=== PATIENT | male | born 1975 | race Caucasian/White ===

== ENCOUNTER → 2018-02-25 11:34 | Outpatient (CLI) | payer OTHER, SELFPAY ==
--- NOTE | 2018-02-25 11:41 | RAD_ITS ---
STUDY: X-RAY CHEST REASON FOR EXAM: Male, 42 years old. Shortness of breath on exertion TECHNIQUE: PA and lateral views of the chest. COMPARISON: None. FINDINGS: The lungs are clear and expanded. There is no demonstrated pleural abnormality. Normal size heart. Normal mediastinum and keith. Normal visualized pulmonary arteries. Normal visualized aortic arch and descending thoracic aorta. Normal visualized thoracic spine. Normal visualized ribs, clavicles, and shoulders. There is no demonstrated abnormality of the visualized soft tissue structures of the upper abdomen. RAD/Chest PA and Lateral IMPRESSION: Normal x-ray examination of the chest. Electronically Signed: Yordy Meyers DO at 11:43 EST Tel , Service support ,
--- OUTSIDE RECORDS SUMMARY | 2018-04-13 15:05 | XMS RPT_ITS ---
:1975 Author Organization [facility] Care Team Providers Name Role Phone John Caldera Attending Unavailable John Caldera Referring Unavailable John Caldera Primary Care Unavailable John Caldera Attending Unavailable John Caldera Referring Unavailable John Caldera Primary Care Unavailable PROBLEMS PROBLEMS DATE TYPE CONDITION / CODE ATTENDING STATUS SOURCE 02/25/2018 Unknown R06.02 - John Caldera Active [place] [facility] R06.02(ICD-10) Repository PROCEDURES PROCEDURES No Procedure Records FoundRESULTS RESULTS CHEST PA AND LATERAL Observed: 02/25/2018 Status: F Source: [place] 11:42 AM [facility] REPOSITORY [facility] Imaging Services [address] [place] [address] Chest PA and Lateral MR#: [id number] Acct: [id number] Name: JERAMIE CABRAL Rep #: [id number] : 1975 M 42 From: Yordy Meyers DO PCP: John Caldera MD Status: REG CLI Study: Chest PA and Lateral Date of Exam: 02/25/18 Exam# [id number] Ordering Dr: John Caldera MD STUDY: X-RAY CHEST REASON FOR EXAM: Male, 42 years old. Shortness of breath on exertion TECHNIQUE: PA and lateral views of the chest. COMPARISON: None. FINDINGS: The lungs are clear and expanded. There is no demonstrated pleural abnormality. Normal size heart. Normal mediastinum and keith. Normal visualized pulmonary arteries. Normal visualized aortic arch and descending thoracic aorta. Normal visualized thoracic spine. Normal visualized ribs, clavicles, and shoulders. There is no demonstrated abnormality of the visualized soft tissue structures of the upper abdomen. RAD/Chest PA and Lateral IMPRESSION: Normal x-ray examination of the chest. 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 Aggravating: Rotation, extension Relieving: Not moving the head Pain relievers: none Associated: Pertinent negatives: Denies numbness, weakness, known injury, fever, headache PAST MEDICAL HISTORY Diagnosis Date - Pectus excavatum - Syncope 1986 multiple (6) episodes of syncope - Tobacco abuse MEDICATIONS: nystatin (NYSTOP) powder Apply 1 application to affected area three times daily. ALLERGIES: ALLERGIES No Known Allergies VITALS: BP 120/86 Pulse 80 Temp 36.8 ?C (98.2 ?F) (Tympanic) Resp 16 Wt 111.1 kg (245 lb) BMI 30.62 kg/m2 PHYSICAL EXAM: GEN: no acute distress, alert, sitting without moving his head HEENT: PERRL, EOMI, MMM NECK: supple, no lymphadenopathy, no thyromegaly No midline tenderness, no paraspinal tenderness. Normal flexion, 10 degrees left rotation, 15 degrees right rotation, limited lateral extension, no extension. HEART: regular rate, regular rhythm, no murmurs LUNGS: clear to auscultation, no wheezes or crackles, no increased WOB EXT: no clubbing, no cyanosis, no edema NEURO: Alert and oriented to person, place, and time. DTR 2+/4. Normal strength. Normal gait. No tremor. ASSESSMENT/PLAN: 1. Neck pain - ICD9: 723.1, ICD10: M54.2 Treat with aleve and ice or heat. Consider chiropractic manipulation. Seek ER evaluation for fever or progressive numbness/weakness. Darrius Hensley MD ALLERGIES ALLERGIES DATE TYPE / CODE NAME / CODE REACTION SEVERITY SOURCE Drug NO KNOWN [facility] Class/32244 ALLERGIES [facility] 1003(SNOMED Repository CT) ENCOUNTERS ENCOUNTERS ADMIT/DISCHARGE ACCOUNT ADMITTING ENCOUNTER LOCATION SOURCE NUMBER CLASS 03/20/2018 [id number] [facility] ing:[facility] Repository 02/25/2018 [id number] [facility] ing:[facility] Repository 05/09/2017/05/14/19 [id number] Ambulatory [address] Repository PAYERS PAYERS ENCOUNTER GUARANTOR PAYER SUBSCRIBER SOURCE 03/20/2018 JERAMIE Mark Primary HECTOR [place] [id number] [facility] MARIA R, [facility]: [id number] [address]Cfx: [id number] Repository Date:[id number] [address], [place] [address]JT: 03/20/2018 [facility]:SELF PAY [facility] Number: Effective Repository Date:2018-03-20 02/25/2018 JERAMIE Mark Primary HECTOR [place] [id number] Insurance:[facility], Number: [id number] [address]Wmn: [id number] Repository Date:[id number] [address], [place] [address]QN: 02/25/2018 Secondary NOT GIVENUNK [place] Insurance:[facility]LF [facility]Y [facility] Number: Effective Repository Date:2018-02-25
== END ==
LOC: MTLAB 11:38 → MTRAD 11:41
PROVIDERS: Family Provider Family Medicine; PCP Family Medicine; Referring Provider Family Medicine; Visit Provider Family Medicine
DX: R06.02 Shortness of breath (principal)
CPT/HCPCS: 71046

== ENCOUNTER 2018-05-29 16:57 | Emergency (ER) | payer OTHER, SELFPAY ==
[2018-05-29 16:57] VITALS: BP 152/80; PULSE 81; RESP 16; TEMP 36.6; O2SAT 100; BMI 31.2
--- NOTE | 2018-05-29 17:15 | RAD_ITS ---
STUDY: X-RAY - SOFT TISSUE NECK REASON FOR EXAM: Male, 42 years old. Possible foreign body. TECHNIQUE: 2 view(s) of the neck were obtained. COMPARISON: None. FINDINGS: Normal visualized nasopharynx, oropharynx, hypopharynx. Normal epiglottis. Normal visualized subglottic tracheal air column. Normal prevertebral soft tissue structures. Normal visualized osseous structures. The soft tissue structures are unremarkable. No radiopaque foreign bodies are seen. RAD/Neck for Soft Tissue IMPRESSION: Normal x-ray soft tissue neck. Electronically Signed: Sreedhar Chong MD at 18:39 EDT , Service support ,
--- NOTE | 2018-05-29 17:17 | ED.VIS.GEN ---
History of Present Illness Chief Complaint: Foreign Body Informant: Patient Onset: Today Context: Sudden Onset Timing: Continuous Quality: Foreign body sensation throat/neck Current Severity: Mild Maximum Severity: Moderate Worsened by: Swallowing Relieved by: Nothing Associated Symptoms: Possibly change in voice Narrative: Patient was using a grinding wheel. He states piece of metal went into his mouth. He believes the piece of metal is in his throat. Triage nurse states may have been in gum. He does not have a hoarse voice. There is no evidence of respiratory distress. He states there is been no drooling. He states he has discomfort when he swallows but is able to swallow. He is on no anticoagulant. He states he quit smoking March 20, 2018. Past Medical History - Allergies and Home Meds Allergies/Adverse Reactions: Allergies No Known Allergies Allergy (Verified 05/29/18 17:00) Primary Care Physician: John Caldera MD [Primary Care Provider] - Prior records reviewed: Yes Past Medical History: None Surgical History: noncontributory Smoking Status: Former smoker Alcohol: None Review of Systems General: Denies: Chills, Fever, Sweats Eyes: Denies: Visual changes - bilaterally, Blurred Vision - bilaterally, Diplopia ENT: Reports: Sore throat. Denies: Rhinorrhea Cardiovascular: Denies: Chest pain, Palpitations Respiratory: Denies: Dyspnea, Cough, Dyspnea on exertion Hematologic: Denies: Easy bruising, Easy bleeding Allergy: Reports: Swelling of the mouth, Swelling of the tongue Physical Exam Vital Signs/Narrative: Vital Signs Temp Pulse Resp BP Pulse Ox 05/29/18 16:57 98 F 81 16 152/80 H 100 Inital Vital Signs reviewed: Yes General: Well nourished, Well developed, No Acute Distress. Negative for: Obese Head: Normocephalic, Atraumatic. Negative for: Trauma, Tenderness Eyes: Perrl, EOMI, -. Negative for: Pale conjunctiva, Scleral icterus ENT: Moist mucous membranes, No rhinorrhea, - - Trachea is midline. There is no stridor. There is no angioedema.. Negative for: Sinus tenderness Neck: Supple, Nontender, No lymphadenopathy, No JVD - You are being prejudiced Cardiovascular: Regular rate, Regular rhythm, No murmurs, Normal S1, Normal S2 Respiratory: No distress, CTA bilaterally, Chest nontender. Negative for: Decreased Air Movement Skin: Normal color, No rash. Negative for: Cyanosis, Diaphoresis, Jaundice Neurological: Alert, Oriented x3, Cranial nerves II-XII grossly intact, Normal Strength, Normal Sensation, Normal Gait Psychological: Normal affect, Normal Mood Diagnostic/Tx/Re-eval 2 view x-ray of the neck soft tissue reveals no foreign body. Patient may have had an abrasion it is given him foreign body sensation. Nothing further needs to be done. - Medical Decision Making Since patient complains of discomfort with swallowing and foreign body sensation will obtain x-ray. If there is a metallic foreign body should be very apparent. ED Disposition - Plan for ED Patient: Disposition: Home or Assisted Living Diagnosis: Foreign body sensation in throat Instructions: ED Foreign Body Esophageal Rslv Referrals: John Caldera MD [Primary Care Provider] - As Needed Additional Instructions: If you have any difficulty swallowing solids, drooling, or difficulty breathing, please return to the emergency department.
[2018-05-29 18:37] VITALS: PULSE 80; RESP 16; O2SAT 99
== END 2018-05-29 18:38 | disposition home or self-care (01) ==
LOC: ED 18:32
PROVIDERS: Emergency Provider Emergency Medicine; Family Provider Family Medicine; PCP Family Medicine
DX: R09.89 Other specified symptoms and signs involving the circulatory and respiratory systems (principal); Z87.891 Personal history of nicotine dependence
CPT/HCPCS: 70360; 99282

== ENCOUNTER → 2018-07-22 | Outpatient (CLI) | payer OTHER, SELFPAY ==
--- NOTE | 2018-07-22 15:59 | RAD_ITS ---
STUDY: X-RAY - PELVIS AND BILATERAL HIPS REASON FOR EXAM: Male, 42 years old. Pain TECHNIQUE: AP view of the pelvis.? 2 views of the right hip, and 2 views of the left hip were obtained. COMPARISON: None. FINDINGS: There is a non-specific bowel gas pattern. Normal visualized soft tissue structures. Normal bilateral iliac wings, sacroiliac joints and visualized sacrum. Normal bilateral superior and inferior pubic rami. Normal pubic symphysis. Normal bilateral ischial tuberosities. Normal visualized right femoral head. Normal right acetabulum. Normal right hip joint. Normal visualized left femoral head. Normal left acetabulum. Normal left hip joint. RAD/Hips B/L min 2 views w/ Pelvis IMPRESSION: Normal x-ray examination of the pelvis and bilateral hips. Electronically Signed: Rajat Davidson MD at 15:32 EDT , Service support ,
--- NOTE | 2018-07-22 16:01 | RAD_ITS ---
STUDY: X-RAY - LUMBAR SPINE REASON FOR EXAM: Male, 42 years old. Low back pain with hip pain TECHNIQUE: 5 view(s) of the lumbar spine were obtained. COMPARISON: None FINDINGS: Normal lumbar lordosis. There is no substantial scoliosis. Grade 2 anterolisthesis of L5 on S1 with chronic-appearing bilateral pars defects. Endplate degenerative change at L4-5 and L5-S1. Disc space height loss at L5-S1. There is no demonstrated acute fracture. The soft tissue structures are unremarkable. RAD/L/S Spine Min 4 Views IMPRESSION: Degenerative changes with anterolisthesis at L5-S1 and chronic pars defects Electronically Signed: Yordy Meyers DO at 14:42 EDT Tel , Service support ,
== END | disposition home or self-care (01) ==
PROVIDERS: Family Provider Family Medicine; PCP Family Medicine; Referring Provider Family Medicine; Visit Provider Family Medicine
DX: M54.5 Low back pain (principal); M25.551 Pain in right hip; M25.552 Pain in left hip
CPT/HCPCS: 72110; 73521

== ENCOUNTER 2018-08-07 21:41 | Emergency (ER) | payer OTHER, SELFPAY ==
[2018-08-07 21:43] VITALS: BP 142/93; PULSE 62; RESP 13; TEMP 37; O2SAT 98; BMI 34.2
--- NOTE | 2018-08-07 21:54 | RAD_ITS ---
STUDY: X-RAY CHEST REASON FOR EXAM: Male, 42 years old. Shortness of breath, nausea, chest pain TECHNIQUE: Single AP portable view of the chest. COMPARISON: Previous study of 02/25/2018 FINDINGS: compliance monitor leads are present. The lungs are clear and expanded. There is no demonstrated pleural abnormality. Normal size heart. Normal mediastinum and keith. Normal visualized pulmonary arteries. Normal visualized aortic arch and descending thoracic aorta. Normal visualized thoracic spine. Normal visualized ribs, clavicles, and shoulders. There is no demonstrated abnormality of the visualized soft tissue structures of the upper abdomen. RAD/Chest 1 View (Portable) IMPRESSION: Normal x-ray examination of the chest. Electronically Signed: Emil Stack MD at 22:27 EDT , Service support ,
--- NOTE | 2018-08-07 21:54 | EKG12_ITS ---
Test Reason : CP Blood Pressure : / mmHG Vent. Rate : 067 BPM Atrial Rate : 067 BPM P-R Int : 164 ms QRS Dur : 094 ms QT Int : 382 ms P-R-T Axes : 034 006 008 degrees QTc Int : 403 ms Normal sinus rhythm Normal ECG Confirmed by CARLOTTA CRAVEN ([id number]), associate editor OMID KESSLER ([id number]) on 08/12/2018 11:34:57 AM Referred By: MARII Confirmed By:HIMANSHU CRAVEN
--- NOTE | 2018-08-07 21:55 | ED.RN ---
NO OLD EKGS IN MUSE
[2018-08-07 22:00] LABS: Absolute Lymphocyte Count 2.74 X10^3/ul (0.83-4.51); Absolute Neutrophil Count 4.6 X10^3/uL (2.0-7.7); Basophil# 0.05 X10^3/uL; Basophil% 0.6 % (0-1); Eosinophil# 0.34 X10^3/uL; Eosinophils% 4.1 % (0-5); Hematocrit 41.2 % (40-54); Hemoglobin 14.3 g/dl (13.0-16.5); Lymphocyte # 2.74 X10^3/ul (4.0); Lymphocyte % 32.9 % (19-41); Mean Corp Hgb Conc 34.7 g/gl (32-36); Mean Corpuscular Hgb 30.7 pg (27.0-32.0); Mean Corpuscular Volume 88.4 fL (80-94); Mean Platelet Vol. 9.1 fl (6.2-12.0); Monocyte# 0.56 X10^3/uL; Monocyte% 6.7 % (0-10); Neutrophil # 4.64 X10^3/uL (2.7-7.7); Neutrophil % 55.6 % (47-70); Platelet Count 246 K/mm3 (150-450); RBC Distribution Width CV 12.4 % (11.6-14.6); RBC Distribution Width SD 39.7 fl (35.1-43.9); Red Blood Count 4.66 M/mm3 (4.6-6.2); White Blood Count 8.3 K/mm3 (4.4-11.0)
[2018-08-07 22:01] LABS: POSITIVE COUNT NO; POSITIVE DIFFERENTIAL NO; POSITIVE MORPHOLOGY NO
[2018-08-07 22:17] LABS: Anion Gap 5 (5-15); BUN 20 mg/dL (7-18); Chloride 110 mmol/L (98-107); EST Glomerular Filtration Rate 87 mL/min (>60); Est Glom Filt Rate - Afr Amer 105 mL/min (>60); Estimated Creatinine Clearance 115.01 ml/min; Glucose 112 mg/dL (74-106); Potassium 3.8 mmol/L (3.5-5.1); Sodium Level 142 mmol/L (136-145)
[2018-08-07 22:42] VITALS: BP 133/78; PULSE 61; RESP 16; O2SAT 97
--- NOTE | 2018-08-07 22:47 | ED.DCSUM_ITS ---
History of Present Illness Chief Complaint: Chest Pain Informant: Patient Onset: Today - about 3 hrs prior to evaluation by MD Activity at onset: Rest - sitting, driving Timing: Intermittent, Waxes and wanes Quality: Tightness Location: Substernal Current Severity: Gone Maximum Severity: Moderate Worsened By: Nothing Relieved By: Nothing Associated Symptoms: Nausea, Dyspnea, - - tingling down LUE. Negative for: Vomiting, Diaphoresis, Cough, Fever, Lightheadedness, Acid Reflux, Palpitations Narrative: This is the first episode like this he has had, but states he was having discomfort off and on for the last week that was more diffuse throughout his chest and not as substernal as this was. He would trigger it with lying down and it would get better with sitting up. He would also have some discomfort that was exertional although he is very vague with the details. He states that often times when exerting himself he would feel his heart beating harder but not necessarily fast or skipping. No associated lightheadedness. He stopped smoking 5 months ago, and had a [id number]-[id number] history prior to that. No known heart disease in first-degree relatives in ages 50's or younger. Prior Similar Symptoms: No Past Medical History - Allergies and Home Meds Allergies/Adverse Reactions: Allergies No Known Allergies Allergy (Verified 08/07/18 21:50) Primary Care Physician: John Caldera MD [Primary Care Provider] - Past Medical History: None Surgical History: noncontributory Lives: Spouse/ Significant Other Smoking Status: Former smoker Drugs: None Review of Systems General: Denies: Chills, Fever, Sweats Eyes: Denies: Visual changes - bilaterally, Diplopia ENT: Denies: Rhinorrhea, Sore throat Cardiovascular: Reports: Chest pain - nonpleuritic. Denies: Palpitations Respiratory: Reports: Dyspnea. Denies: Cough, Dyspnea on exertion Gastrointestinal: Reports: Nausea. Denies: Abdominal pain, Vomiting, Diarrhea, Melena, Hematochezia Genitourinary: Denies: Dysuria, Hematuria, Frequency Musculoskeletal: Reports: Extremity Pain. Denies: Back pain, Swelling Skin: Denies: Rash, Wounds Neurological: Denies: Headache, Weakness, Numbness Physical Exam Vital Signs/Narrative: Vital Signs Temp Pulse Resp BP Pulse Ox 08/07/18 21:43 98.6 F 62 13 142/93 H 98 Inital Vital Signs reviewed: Yes General: Well nourished, Well developed, No Acute Distress Head: Normocephalic, Atraumatic Eyes: Perrl, EOMI ENT: Moist mucous membranes, No rhinorrhea Neck: Supple, Nontender Cardiovascular: Regular rate, Regular rhythm, No murmurs, - - Equal bilateral 2+/4 radial pulses Respiratory: No distress, CTA bilaterally, Chest nontender Abdomen: Soft, Nontender, Nondistended, Normal bowel sounds Back: Nontender, Normal Inspection Extremities: Nontender, No edema. Negative for: Calf Tenderness Skin: Normal color, No rash, No Trauma Neurological: Alert, Oriented x3, Cranial nerves II-XII grossly intact, Normal Strength, Normal Sensation Psychological: Normal affect, Normal Mood Diagnostic/Tx/Re-eval Impressions Chest X-Ray 08/07/18 21:54 IMPRESSION: Normal x-ray examination of the chest. Electronically Signed: Emil Stack MD at 22:27 EDT , Service support , 08/07/18 21:54 Chest 1 View (Portable) [RAD] Stat Laboratory Results 08/07/18 08/07/18 21:50 21:50 WBC 8.3 RBC 4.66 Hgb 14.3 Hct 41.2 MCV 88.4 MCH 30.7 MCHC 34.7 RDW 12.4 RDW Differential 39.7 Plt Count 246 MPV 9.1 Immature Gran % (Auto) 0.100 Neut % (Auto) 55.6 Lymph % (Auto) 32.9 Graves % (Auto) 6.7 Eos % (Auto) 4.1 Baso % (Auto) 0.6 Absolute Neuts (auto) 4.6 Absolute Lymphs (auto) 2.74 Total Counted Not Reportable Sodium 142 Potassium 3.8 Chloride 110 H Carbon Dioxide 27.0 Anion Gap 5 BUN 20 H Creatinine 1.00 Estim Creat Clear Calc 115.01 Est GFR (MDRD) Af Amer 105 Est GFR (MDRD) Non-Af 87 BUN/Creatinine Ratio 20.0 Glucose 112 H Calcium 9.0 Troponin I < 0.015 - Rhythm Strip Rhythm Strip: Sinus Rhythm Rate: 67 Ectopy: None - EKG Initial EKG Interpretation: Sinus Rhythm, No Acute Injury Pattern - Normal EKG. Normal axis. - Medical Decision Making Patient had a couple of very brief episodes of chest discomfort while here in the emergency department but declines any offered medications. When I check on him, he is asymptomatic. His initial work-up is negative including chest x-ray, labs including troponin. His EKG is normal. His HANK risk score is 0, his heart score is 3. I gave him to for the concerning history, one for risk factor because of his smoking, otherwise 0 for the other components. This qualifies him for a 3-hour repeat troponin and if negative, allows for a safe discharge and follow-up within the next month. He is comfortable with that plan. The s econd troponin is checked out to the night emergency physician. Discussed at length with the patient and he is comfortable with this plan of following up. I do suggest if his repeat is negative, that he may have an esophageal etiology of his symptoms. ED Disposition - Plan for ED Patient: Disposition: Home or Assisted Living Diagnosis: Chest pain, unspecified Instructions: ED Chest Pain NonCardiac Prescriptions: Pantoprazole Sodium [Protonix] 40 mg PO DAILY #14 tab Referrals: John Caldera MD [Primary Care Provider] - (call next week for appt)
[2018-08-07 23:00] VITALS: BP 121/80; PULSE 61; RESP 12; O2SAT 98
[2018-08-08] VITALS: BP 111/70; PULSE 62; RESP 10; O2SAT 96
[2018-08-08 01:40] VITALS: BP 108/79; PULSE 65; RESP 18; O2SAT 97
== END 2018-08-08 01:41 | disposition home or self-care (01) ==
PROVIDERS: Emergency Provider Emergency Medicine; Family Provider Family Medicine; PCP Family Medicine
DX: R07.89 Other chest pain (principal); R06.00 Dyspnea, unspecified; R11.0 Nausea; Z87.891 Personal history of nicotine dependence
CPT/HCPCS: 71045; 80048; 84484; 85025; 93005; 99285; A4216

== ENCOUNTER 2024-05-19 06:17 | Emergency (ER) | payer OTHER, SELFPAY ==
[2024-05-19] VITALS (18 sets, daily range): BP systolic 120–163; BP diastolic 67–94; PULSE 51–72; RESP 10–18; TEMP 36.2–36.8; O2SAT 93–100; BMI 35.8
--- NOTE | 2024-05-19 06:39 | RAD_ITS ---
PROCEDURE: Chest PA and lateral REASON FOR EXAM: Chest pain TECHNIQUE: Frontal and lateral views of the chest. COMPARISON: Chest x-ray dated 08/07/2018. FINDINGS: The heart size is normal. The mediastinal contour is unremarkable. The lungs are clear. The bones are unremarkable. RAD/Chest PA and Lateral IMPRESSION: No focal infiltrate or consolidation. Reading Location: [id number]
[2024-05-19] MEDS: Aspirin 325 MG Tablet PO (06:53)
[2024-05-19 06:55] LABS: Absolute Lymphocyte Count 2.05 X10^3/uL (0.83-4.51); Absolute Neutrophil Count 2.5 X10^3/uL (2.0-7.7); Basophil# 0.07 X10^3/uL; Basophil% 1.3 % (0-1); Eosinophils% 5.5 % (0-5); Hematocrit 45.9 % (40-54); Hemoglobin 15.3 g/dL (13.0-16.5); Lymphocyte # 2.05 X10^3/ul (0.83-4.51); Lymphocyte % 37.8 % (19-41); Mean Corp Hgb Conc 33.3 g/dL (32-36); Mean Corpuscular Hgb 29.8 pg (27.0-32.0); Mean Corpuscular Volume 89.5 fL (80-94); Mean Platelet Vol. 9.2 fl (6.2-12.0); Monocyte# 0.52 X10^3/uL; Monocyte% 9.6 % (0-10); NRBC Flagged by Analyzer 0 % (0-5); Neutrophil # 2.48 X10^3/uL (2.7-7.7); Neutrophil % 45.6 % (47-70); Platelet Count 275 K/mm3 (150-450); RBC Distribution Width CV 12.4 % (11.6-14.6); RBC Distribution Width SD 40.8 fl (35.1-43.9); Red Blood Count 5.13 M/mm3 (4.6-6.2); White Blood Count 5.4 K/mm3 (4.4-11.0)
--- NOTE | 2024-05-19 07:08 | EX.ED.DYSGE1 ---
HPI <Dr. Donal Sevilla DO - Last Filed: 05/19/24 21:57> History of Present Illness Chief Complaint: Chest Pain Informant: patient Narrative Narrative: Patient is a 48-year-old male who reports no significant past medical history. 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 He states that he is typically sedentary and does not workout on a daily basis and has been doing more physical activity. He states starting Friday he noticed some pain along the left chest/shoulder region. He states that the symptoms have come and gone and he cannot definitively relate the pain to motion. He states that there is a family history of cardiovascular disease and he has concern that his intermittent pain could be related to a abnormal presentation for cardiac event and with this comes in for evaluation He denies any recent travel surgery or history of DVT/PE [facility] <Dr. Donal Sevilla DO - Last Filed: 05/19/24 21:57> [facility] Medical History Back pain Knee pain Chest pain Home Medications ?Medication ?Instructions ?Recorded ?Last Taken ?Type NK 08/21/19 Unknown History Allergy/AdvReac Type Severity Reaction Status Date / Time shellfish derived Allergy Shortness Verified 05/19/24 06:19 of breath Family History (Updated 08/21/19 @ 09:15 by Lily Mccann) Other Hypertension Social History (Updated 08/21/19 @ 09:31 by Chris Sanabria NP, [facility]) Smoking Status: Former smoker alcohol intake: never ROS <Dr. Donal Sevilla, - Last Filed: 05/19/24 21:57> ROS ED Constitutional Constitutional ED: Denies chills or fever(s) Eyes Eyes: Denies blurry vision or change in vision ENT ENT ED: Denies sore throat Cardiovascular Cardiovascular: Reports chest pain; Denies palpitations or racing heartbeat Respiratory/Chest Respiratory/Chest: Denies cough or dyspnea Gastrointestinal Gastrointestinal: Denies abdominal pain, diarrhea, nausea or vomiting Genitourinary Genitourinary ED: Denies dysuria Musculoskeletal Musculoskeletal: Denies back pain or neck pain Integumentary Denies rash Neurologic Neurologic: Denies headache(s) Hematologic/Lymphatic Hematologic/Lymphatic: Denies easy bleeding or easy bruising EXAM <Dr. Donal Sevilla, DO - Last Filed: 05/19/24 21:57> Physical Exam Const Vital Signs: 05/19/24 06:19 05/19/24 06:21 05/19/24 06:37 Temperature 98.3 F Temperature Source Oral Pulse Rate 66 68 Respiratory Rate 18 14 Respiratory Effort Normal Non-Labored Blood Pressure 163/94 H Blood Pressure Mean 117 Pulse Ox 100 99 Oxygen Delivery Method Room Air 05/19/24 06:45 05/19/24 07:00 05/19/24 07:04 Temperature Temperature Source Pulse Rate 66 72 Respiratory Rate 15 10 L Respiratory Effort Blood Pressure 149/84 H 137/76 H Blood Pressure Mean 101 95 Pulse Ox 99 Oxygen Delivery Method 05/19/24 07:15 05/19/24 07:30 05/19/24 07:45 Temperature Temperature Source Pulse Rate 64 58 L 62 Respiratory Rate 12 11 L 11 L Respiratory Effort Blood Pressure 133/81 H 124/75 H 135/81 H Blood Pressure Mean 96 87 97 Pulse Ox 93 94 Oxygen Delivery Method 05/19/24 08:00 05/19/24 08:15 05/19/24 08:30 Temperature Temperature Source Pulse Rate 61 60 56 L Respiratory Rate 11 L 12 12 Respiratory Effort Blood Pressure 130/73 H 132/78 H 133/67 H Blood Pressure Mean 91 93 85 Pulse Ox 96 Oxygen Delivery Method 05/19/24 08:45 05/19/24 09:00 05/19/24 09:15 Temperature Temperature Source Pulse Rate 57 L 51 L 65 Respiratory Rate 11 L 10 L 12 Respiratory Effort Blood Pressure 126/77 H 126/70 H 130/88 H Blood Pressure Mean 91 86 100 Pulse Ox 97 Oxygen Delivery Method 05/19/24 09:30 05/19/24 09:45 05/19/24 10:00 Temperature Temperature Source Pulse Rate 65 57 L 56 L Respiratory Rate 13 14 12 Respiratory Effort Blood Pressure 135/87 H 129/85 H 120/78 Blood Pressure Mean 101 97 92 Pulse Ox Oxygen Delivery Method 05/19/24 10:14 Temperature 97.2 F L Temperature Source Pulse Rate 56 L Respiratory Rate 12 Respiratory Effort Blood Pressure 120/78 Blood Pressure Mean 92 Pulse Ox 95 Oxygen Delivery Method Positive well nourished, well developed and obese General Appearance ED: well developed; Negative for pallor Nutritional Appearance: obese HEENT HEENT Narrative: Normocephalic atraumatic Eyes PERRL and EOMs intact bilaterally General Eye ED: Negative for scleral icterus Neck supple and no JVD Chest Wall palpation of chest normal Chest Narrative: No bony deformity or crepitance noted Resp normal respiratory effort and clear to auscultation bilaterally Cardio regular rate and regular rhythm Rate: other Other Details: Heart is regular rate and rhythm without murmurs rubs or gallops Radial and carotid pulses are equal and symmetric No carotid bruit noted GI normal to inspection, nondistended, normoactive bowel sounds, non-tender, non-distended and no masses GI Narrative: No voluntary guarding or rigidity or pulsatile mass Auscultation: normoactive bowel sounds Palpation: soft Extremity normal to inspection Extremity Narrative: No asymmetric edema no pitting edema negative Homans' sign bilaterally Neuro oriented x3, CN's II-XII intact bilaterally and no sensory deficits noted Sensorium / Orientation: alert Motor Exam: strength 5/5 throughout Psych mental status grossly normal Skin no rashes or lesions noted and no wounds General Skin Exam: Negative for jaundice or pallor <Dr. Alfie Hernandez, DO - Last Filed: 05/19/24 10:11> Physical Exam Const Vital Signs: 05/19/24 06:19 05/19/24 06:21 05/19/24 06:37 Temperature 98.3 F Temperature Source Oral Pulse Rate 66 68 Respiratory Rate 18 14 Respiratory Effort Normal Non-Labored Blood Pressure 163/94 H Blood Pressure Mean 117 Pulse Ox 100 99 Oxygen Delivery Method Room Air 05/19/24 06:45 05/19/24 07:00 05/19/24 07:04 Temperature Temperature Source Pulse Rate 66 72 Respiratory Rate 15 10 L Respiratory Effort Blood Pressure 149/84 H 137/76 H Blood Pressure Mean 101 95 Pulse Ox 99 Oxygen Delivery Method 05/19/24 07:15 05/19/24 07:30 05/19/24 07:45 Temperature Temperature Source Pulse Rate 64 58 L 62 Respiratory Rate 12 11 L 11 L Respiratory Effort Blood Pressure 133/81 H 124/75 H 135/81 H Blood Pressure Mean 96 87 97 Pulse Ox 93 94 Oxygen Delivery Method 05/19/24 08:00 05/19/24 08:15 05/19/24 08:30 Temperature Temperature Source Pulse Rate 61 60 56 L Respiratory Rate 11 L 12 12 Respiratory Effort Blood Pressure 130/73 H 132/78 H 133/67 H Blood Pressure Mean 91 93 85 Pulse Ox 96 Oxygen Delivery Method 05/19/24 08:45 05/19/24 09:00 05/19/24 09:15 Temperature Temperature Source Pulse Rate 57 L 51 L 65 Respiratory Rate 11 L 10 L 12 Respiratory Effort Blood Pressure 126/77 H 126/70 H 130/88 H Blood Pressure Mean 91 86 100 Pulse Ox 97 Oxygen Delivery Method 05/19/24 09:30 05/19/24 09:45 05/19/24 10:00 Temperature Temperature Source Pulse Rate 65 57 L 56 L Respiratory Rate 13 14 12 Respiratory Effort Blood Pressure 135/87 H 129/85 H 120/78 Blood Pressure Mean 101 97 92 Pulse Ox Oxygen Delivery Method 05/19/24 10:14 Temperature 97.2 F L Temperature Source Pulse Rate 56 L Respiratory Rate 12 Respiratory Effort Blood Pressure 120/78 Blood Pressure Mean 92 Pulse Ox 95 Oxygen Delivery Method [facility] <Dr. Donal Sevilla, DO - Last Filed: 05/19/24 21:57> [facility] Narrative Medical decision making narrative: Patient arrived to the ER hypertensive otherwise with stable vitals. His presentation for chest discomfort is atypical for acute coronary syndrome but it with this as a potential cause as well as potential cardiac dysrhythmia or lung pathology such as pneumonia or pneumothorax basic blood work with a chest x-ray were obtained. EKG showed sinus rhythm without ischemia changes and while patient was on radiation monitor there was no cardiac dysrhythmia noted. Initial troponin was normal at 6 going against ACS and blood work revealed no signs of acute kidney injury or clinically significant electrolyte abnormality or acute blood loss anemia. Chest x-ray also revealed no acute lung pathology. On reevaluation his vitals have stabilized/improved without treatment and patient has had resolution of symptoms. Therefore at this time with overall negative workup and improvement of vitals and symptoms I do not feel the need for further evaluation especially as patient is low risk for DVT/PE and denies any pleuritic chest pain and is otherwise safe for discharge with outpatient follow-up with family doctor. History & Record Review Discussion w/independent historian: Patient Lab Data Attestation: I reviewed the patient's lab results. Labs: Laboratory Results - last 24 hr 05/19/24 05/19/24 05/19/24 06:23 08:39 16:28 WBC 5.4 RBC 5.13 Hgb 15.3 Hct 45.9 MCV 89.5 MCH 29.8 MCHC 33.3 RDW Std Deviation 40.8 RDW Coeff of Douglas 12.4 Plt Count 275 MPV 9.2 Immature Gran % (Auto) 0.200 Neut % (Auto) 45.6 L Lymph % (Auto) 37.8 [place] % (Auto) 9.6 Eos % (Auto) 5.5 H Baso % (Auto) 1.3 H Absolute Neuts (auto) 2.5 Absolute Lymphs (auto) 2.05 Nucleated RBC % 0 Sodium 142 Potassium 4.0 Chloride 107 Carbon Dioxide 24.3 Anion Gap 11 BUN 20 H Creatinine 0.92 Estim Creat Clear Calc 142.58 Est GFR (MDRD) Non-Af 102 BUN/Creatinine Ratio 21.9 H Glucose 93 Calcium 9.8 Magnesium 2.0 Troponin T High Sens 6 Troponin T Hi Sens 2 Hr 6 Troponin T Hi Sens 2Hr Delta 0 TSH 1.320 Free T4 0.90 Radiography Diagnostic Testing: Clinical Impression(s) from Imaging Studies Chest X-Ray 05/19/24 06:39 IMPRESSION: No focal infiltrate or consolidation. Reading Location: [id number] 2 view chest x-ray as interpreted by the emergency medicine physician reveals no acute infiltrate pneumothorax or pleural effusion or widening of the mediastinum <Dr. Alfie Hernandez, DO - Last Filed: 05/19/24 10:11> [facility] Narrative Medical decision making narrative: Patient arrived to the ER hypertensive otherwise with stable vitals. His presentation for chest discomfort is atypical for acute coronary syndrome but it with this as a potential cause as well as potential cardiac dysrhythmia or lung pathology such as pneumonia or pneumothorax basic blood work with a chest x-ray were obtained. EKG showed sinus rhythm without ischemia changes and while patient was on radiation monitor there was no cardiac dysrhythmia noted. Initial troponin was normal at 6 going against ACS and blood work revealed no signs of acute kidney injury or clinically significant electrolyte abnormality or acute blood loss anemia. Chest x-ray also revealed no acute lung pathology. On reevaluation his vitals have stabilized/improved without treatment and patient has had resolution of symptoms. Therefore at this time with overall negative workup and improvement of vitals and symptoms I do not feel the need for further evaluation especially as patient is low risk for DVT/PE and denies any pleuritic chest pain and is otherwise safe for discharge with outpatient follow-up with family doctor. Addendum Alfie Hernandez DO Patient case signed out to me by overnight provider to follow-up on the delta troponin. Patient delta troponin was noted to be normal at 6. Discussed results with the patient he would like to go home at this point time. He is encouraged to follow-up his primary care physician outpatient setting and return with worsening symptoms or other concerns. He is agreeable this plan all question concerns answered he is discharged home in stable condition. Lab Data Labs: Laboratory Results - last 24 hr 05/19/24 05/19/24 05/19/24 06:23 08:39 16:28 WBC 5.4 RBC 5.13 Hgb 15.3 Hct 45.9 MCV 89.5 MCH 29.8 MCHC 33.3 RDW Std Deviation 40.8 RDW Coeff of Douglas 12.4 Plt Count 275 MPV 9.2 Immature Gran % (Auto) 0.200 Neut % (Auto) 45.6 L Lymph % (Auto) 37.8 [place] % (Auto) 9.6 Eos % (Auto) 5.5 H Baso % (Auto) 1.3 H Absolute Neuts (auto) 2.5 Absolute Lymphs (auto) 2.05 Nucleated RBC % 0 Sodium 142 Potassium 4.0 Chloride 107 Carbon Dioxide 24.3 Anion Gap 11 BUN 20 H Creatinine 0.92 Estim Creat Clear Calc 142.58 Est GFR (MDRD) Non-Af 102 BUN/Creatinine Ratio 21.9 H Glucose 93 Calcium 9.8 Magnesium 2.0 Troponin T High Sens 6 Troponin T Hi Sens 2 Hr 6 Troponin T Hi Sens 2Hr Delta 0 TSH 1.320 Free T4 0.90 Radiography Diagnostic Testing: Clinical Impression(s) from Imaging Studies Chest X-Ray 05/19/24 06:39 IMPRESSION: No focal infiltrate or consolidation. Reading Location: [facility] Discharge Plan Triage Chief Complaint: Chest Pain ED Provider: Donal Sevilla Dx/Rx/DC Orders Clinical Impression: Nonspecific chest pain Instructions: ED Chest Pain, Uncertain Cause Prescriptions: No Action NK Primary Care Provider: John Caldera Referrals: John Caldera MD [Primary Care Provider] - Activity Restrictions/Additional Instructions: Your workup today reveals no sign of of lung pathology such as pneumonia or pneumothorax or signs of active cardiac damage. Follow-up with your family doctor for repeat evaluation and return to the ER should you have any further concerns Print Language: Belarusian Disposition Disposition: Home, Self Care Discharge Date/Time: 05/19/24 10:18
[2024-05-19 07:12] LABS: Anion Gap 11 (5-15); BUN 20 mg/dL (4-19); BUN/Creat Ratio 21.9 RATIO (10-20); Calcium,Total 9.8 mg/dL (7.6-11.0); Carbon Dioxide 24.3 mmol/L (21.0-32.0); Chloride 107 mmol/L (98-108); Creatinine, Serum 0.92 mg/dL (0.70-1.20); EST Glomerular Filtration Rate 102 (>60); Estimated Creatinine Clearance 142.58 ml/min (50-250); Glucose 93 mg/dL (70-99); Sodium Level 142 mmol/L (133-145); Troponin T High Sensitivity 6 ng/L (<=22)
[2024-05-19 09:21] LABS: TROPONIN VARIANCE 2 HR 0; Troponin T High Sens 2 HR 6 ng/L (<=22)
== END 2024-05-19 10:18 | disposition home or self-care (01) ==
PROVIDERS: Emergency Provider Emergency Medicine; PCP Family Medicine; Visit Provider Emergency Medicine
DX: R07.9 Chest pain, unspecified (principal); Z87.891 Personal history of nicotine dependence
CPT/HCPCS: 36415; 71046; 80048; 83735; 84439; 84443; 84484; 85025; 93005; 99283